=== PATIENT | female | born 1995 | race Caucasian/White ===

== ENCOUNTER 2019-03-30 10:10 | Emergency (ER) | payer OTHER ==
[2019-03-30] MEDS ORDERED: ACETAMINOPHEN 500 MG TAB ONE (11:08)
[2019-03-30] MEDS ORDERED: IBUPROFEN 200 MG TAB PO ONE (11:08)
[2019-03-30] MEDS ORDERED: IBUPROFEN 400 MG TAB ONE (11:08)
--- NOTE | 2019-03-30 11:55 | RAD REPORT ---
EXAM DESCRIPTION: RAD - Foot Left 3 View - 03/30/2019 11:23 am CLINICAL HISTORY: Left Foot pain FINDINGS: Displaced fracture involves the proximal to mid aspect of the fifth proximal phalanx with marked angulation present at the fracture site. No dislocation
--- NOTE | 2019-03-30 12:10 | ER ---
Nurse's Notes [facility] Name: Ambreen French Age: 24 yrs Sex: Female : 1995 Arrival Date: 03/30/2019 Time: 10:14 Bed 16 Private MD: Diagnosis: acute displaced L 5th toe fracture at the proximal phalanx Presentation: 03/30 10:41 Presenting complaint: Patient states: kicked a tool box 1.5 hours ago. Deformity noted ss to L fifth toe. Transition of care: patient was not received from another setting of care. Onset of symptoms was March 30, 2019. Risk Assessment: Do you want to hurt yourself or someone else? Patient reports no desire to harm self or others. Initial Sepsis Screen: Does the patient meet any 2 criteria? No. Patient's initial sepsis screen is negative. Does the patient have a suspected source of infection? No. Patient's initial sepsis screen is negative. Care prior to arrival: None. 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 - Social history:: Smoking status: Patient/guardian denies using tobacco. - Ebola Screening: : Patient denies exposure to infectious person Patient denies travel to an Ebola-affected area in the 21 days before illness onset. - Family history:: not pertinent. - Hospitalizations: : No recent hospitalization is reported. Screenin:00 Abuse screen: Denies threats or abuse. Denies injuries from another. Nutritional ph screening: No deficits noted. Tuberculosis screening: No symptoms or risk factors identified. Fall Risk None identified. Assessment: 10:45 General: Appears in no apparent distress. uncomfortable, slender, well groomed, ph Behavior is calm, cooperative, appropriate for age. Pain: Complains of pain in left fifth toe. Neuro: Level of Consciousness is awake, alert, obeys commands, Oriented to person, place, time, situation. Cardiovascular: Capillary refill < 3 seconds in bilateral fingers Patient's skin is warm and dry. Respiratory: Airway is patent Respiratory effort is even, unlabored, Respiratory pattern is regular, symmetrical. Derm: Skin is intact, is healthy with good turgor, Skin is pink, warm \T\ dry. Musculoskeletal: Circulation, motion, and sensation intact. Bony deformity noted of left fifth toe. Vital Signs: 10:40 BP 113 / 54; Pulse 71; Resp 16; Temp 98.2(O); Pulse Ox 100% on R/A; Weight 63.5 kg; ss Height 5 ft. 5 in. (165.10 cm); Pain 9/10; 13:00 BP 108 / 78; Pulse 76; Resp 18; Temp 98.0; Pulse Ox 99% on R/A; ph 10:40 Body Mass Index 23.30 (63.50 kg, 165.10 cm) ED Course: 10:14 Patient arrived in ED. mr 10:28 Wai Capps MD is Attending Physician. wa 10:40 Arm band placed on right wrist. 10:43 Triage completed. 10:43 Maty Mohamud, RN is Primary Nurse. ph 11:00 Patient has correct armband on for positive identification. Bed in low position. Call ph light in reach. Side rails up X 1. Pulse ox on. NIBP on. Door closed. Noise minimized. 11:24 Foot Left 3 View XRAY In Process Unspecified. EDMS 12:09 Everett Mishra MD is Referral Physician. wa 12:30 Assist provider with fracture care of left fifth toe Fracture is closed. Obvious ph deformity is noted. Circulation, motor and sensation is intact. Set up for procedure. Performed by Wai Capps MD Reduced with physical manipulation. Patient tolerated well. IV discontinued. Administered Medications: 12:10 Not Given (Other Intervention Used): Motrin 600 mg PO once ph 12:10 Not Given (Other Intervention Used): Tylenol 1000 mg PO once ph 12:26 Drug: morphine 4 mg Route: IM; Site: left deltoid; ph 13:00 Follow up: Response: No adverse reaction ph 12:27 Drug: Zofran 4 mg Route: PO; ph 13:00 Follow up: Response: No adverse reaction ph Outcome: 12:10 Discharge ordered by . wa 13:00 Patient left the ED. ph 13:00 Discharged to home ambulatory, with crutches. ph 13:00 Condition: good 13:00 Discharge instructions given to patient, Instructed on discharge instructions, follow up and referral plans. medication usage, Demonstrated understanding of instructions, follow-up care, medications, Prescriptions given X 2. Signatures: Dispatcher [employer] MERCY WillsonNery Shelby, LUIS RN Maty Mohamud RN RN [facility], MD JOSELUIS Carreno nm
--- NOTE | 2019-03-30 12:11 | EDPHYS ---
Physician Documentation [facility] Name: Ambreen French Age: 24 yrs Sex: Female : 1995 Arrival Date: 03/30/2019 Time: 10:14 Bed 16 Private MD: ED Physician Wai Capps HPI: 03/30 11:58 This 24 yrs old Female presents to ER via Wheelchair with complaints of Toe wa Injury. 11:58 The patient presents with a deformity, an injury, pain. The complaints affect the L wa great toe. Context: The problem was sustained at home, resulted from the patient kicking, a wooden box accidentally, Mechanism of Injury: kicked a box the patient can partially bear weight, the patient is able to ambulate, with mild difficulty. Onset: The symptoms/episode began/occurred just prior to arrival. Modifying factors: The symptoms are alleviated by nothing, the symptoms are aggravated by weight bearing. Associated signs and symptoms: Pertinent positives: pain. Severity of symptoms: At their worst the symptoms were moderate, in the emergency department the symptoms are unchanged. The patient has not experienced similar symptoms in the past. The patient has not recently seen a physician. accidentally kicked a wooden box. c/o pain and deformity to L 5th toe at base. 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 - Social history:: Smoking status: Patient/guardian denies using tobacco. - Ebola Screening: : Patient denies exposure to infectious person Patient denies travel to an Ebola-affected area in the 21 days before illness onset. - Family history:: not pertinent. - Hospitalizations: : No recent hospitalization is reported. ROS: 12:03 MS/extremity: Positive for injury or acute deformity, deformity, pain, tenderness, of wa the base of L 5th toe, Negative for abrasion, contusion. 12:03 Constitutional: Negative for fever, chills, and weight loss, Eyes: Negative for injury, pain, redness, and discharge, ENT: Negative for injury, pain, and discharge, Neck: Negative for injury, pain, and swelling, Cardiovascular: Negative for chest pain, palpitations, and edema, Respiratory: Negative for shortness of breath, cough, wheezing, and pleuritic chest pain, Abdomen/GI: Negative for abdominal pain, nausea, vomiting, diarrhea, and constipation, Back: Negative for injury and pain, : Negative for injury, bleeding, discharge, and swelling, Skin: Negative for injury, rash, and discoloration, Neuro: Negative for headache, weakness, numbness, tingling, and seizure, Psych: Negative for depression, anxiety, suicide ideation, homicidal ideation, and hallucinations. Exam: 12:04 Constitutional: This is a well developed, well nourished patient who is awake, alert, wa and in no acute distress. Head/Face: Normocephalic, atraumatic. Eyes: Pupils equal round and reactive to light, extra-ocular motions intact. Lids and lashes normal. Conjunctiva and sclera are non-icteric and not injected. Cornea within normal limits. Periorbital areas with no swelling, redness, or edema. ENT: Nares patent. No nasal discharge, no septal abnormalities noted. Tympanic membranes are normal and external auditory canals are clear. Oropharynx with no redness, swelling, or masses, exudates, or evidence of obstruction, uvula midline. Mucous membranes moist. Neck: Trachea midline, no thyromegaly or masses palpated, and no cervical lymphadenopathy. Supple, full range of motion without nuchal rigidity, or vertebral point tenderness. No Meningismus. Chest/axilla: Normal chest wall appearance and motion. Nontender with no deformity. No lesions are appreciated. Cardiovascular: Regular rate and rhythm with a normal S1 and S2. No gallops, murmurs, or rubs. Normal PMI, no JVD. No pulse deficits. Respiratory: Lungs have equal breath sounds bilaterally, clear to auscultation and percussion. No rales, rhonchi or wheezes noted. No increased work of breathing, no retractions or nasal flaring. Abdomen/GI: Soft, non-tender, with normal bowel sounds. No distension or tympany. No guarding or rebound. No evidence of tenderness throughout. Back: No spinal tenderness. No costovertebral tenderness. Full range of motion. Skin: Warm, dry with normal turgor. Normal color with no rashes, no lesions, and no evidence of cellulitis. Neuro: Awake and alert, GCS 15, oriented to person, place, time, and situation. Cranial nerves II-XII grossly intact. Motor strength 5/5 in all extremities. Sensory grossly intact. Cerebellar exam normal. Normal gait. Psych: Awake, alert, with orientation to person, place and time. Behavior, mood, and affect are within normal limits. 12:04 Musculoskeletal/extremity: Extremities: grossly normal except: noted in the base of L 5th toe: deformity, pain, swelling, tenderness. Vital Signs: 10:40 BP 113 / 54; Pulse 71; Resp 16; Temp 98.2(O); Pulse Ox 100% on R/A; Weight 63.5 kg; ss Height 5 ft. 5 in. (165.10 cm); Pain 9/10; 13:00 BP 108 / 78; Pulse 76; Resp 18; Temp 98.0; Pulse Ox 99% on R/A; ph 10:40 Body Mass Index 23.30 (63.50 kg, 165.10 cm) Procedures: 12:08 Splinting: Splint applied to left 5th toe using tape. applied by myself. Examined by mook me, post splint application: neurovascular intact, 2+ distal pulses palpable, brisk capillary refill noted, Patient tolerated well. MDM: 10:28 Patient medically screened. wa 12:05 Differential diagnosis: fracture, sprain. Data reviewed: vital signs, nurses notes. la Test interpretation: by ED physician or midlevel provider: L foot x-ray: displaced Fx proximal to mid aspect of 5th proximal phalanx with marked angulation. Response to treatment: the patient's symptoms have markedly improved after treatment. 12:07 ED course: pain control. will reduce fx., splint, Ortho shoe and refer to ortho. la 03/30 10:50 Order name: Foot Left 3 View XRAY; Complete Time: 11:57 la 03/30 11:57 Order name: Ortho shoe: L foot; Complete Time: 18:48 la 03/30 12:12 Order name: Crutch Training; Complete Time: 18:49 la 03/30 12:12 Order name: Crutches; Complete Time: 18:49 wa Administered Medications: 12:10 Not Given (Other Intervention Used): Motrin 600 mg PO once ph 12:10 Not Given (Other Intervention Used): Tylenol 1000 mg PO once ph 12:26 Drug: morphine 4 mg Route: IM; Site: left deltoid; ph 13:00 Follow up: Response: No adverse reaction ph 12:27 Drug: Zofran 4 mg Route: PO; ph 13:00 Follow up: Response: No adverse reaction ph Disposition: 03/30/19 12:10 Discharged to Home. Impression: acute displaced L 5th toe fracture at the proximal phalanx. - Condition is Stable. - Discharge Instructions: Toe Fracture, [id number]. - Prescriptions for Ibuprofen 600 mg Oral Tablet - take 1 tablet by ORAL route every 8 hours As needed take with food; 30 tablet. - Medication Reconciliation Form, Thank You Letter, Antibiotic Education, Prescription Opioid Use form. - Follow up: Everett Mishra MD; When: 2 - 3 days; Reason: Re-evaluation by your physician. - Problem is new. - Symptoms have improved. - Notes: follow up witht e orthopedist for further evaluation and treatment. Signatures: Dispatcher [employer] EDCayla Preciado RN RN Maty Mohamud RN RN [facility], MD MD mook Carreno Corrections: (The following items were deleted from the chart) 13:00 12:10 03/30/2019 12:10 Discharged to Home. Impression: acute displaced L 5th toe ph fracture at the proximal phalanx. Condition is Stable. Forms are Medication Reconciliation Form, Thank You Letter, Antibiotic Education, Prescription Opioid Use. Follow up: Dr. Everett Mishra; When: 2 - 3 days; Reason: Re-evaluation by your physician. Problem is new. Symptoms have improved. wa
[2019-03-30] MEDS ORDERED: MORPHINE 4 MG/ML SYR ONE (12:13)
[2019-03-30] MEDS ORDERED: ONDANSETRON 4 MG (ODT) TAB ONE (12:13)
[2019-03-30 13:06] VITALS: BP 113/54; TEMP 98.2; O2SAT 100
== END 2019-03-30 13:00 | disposition home or self-care (01) ==
LOC: ER 10:10
DX: S92.512A Displaced fracture of proximal phalanx of left lesser toe(s), initial encounter for closed fracture (principal); W22.8XXA Striking against or struck by other objects, initial encounter; Y93.89 Activity, other specified; Y92.009 Unspecified place in unspecified non-institutional (private) residence as the place of occurrence of the external cause; Z88.0 Allergy status to penicillin
CPT/HCPCS: 96372; 99284